=== PATIENT | female | born 1940 | race Caucasian/White ===

== ENCOUNTER 2021-06-26 12:31 | Outpatient (CLI) | payer MEDICARE | END 2021-06-26 12:32 | disposition home or self-care (01) | LOC: CSHMRI 12:31 | PROVIDERS: ATTEND Specialist | DX: M54.12 Radiculopathy, cervical region (principal); M47.812 Spondylosis without myelopathy or radiculopathy, cervical region | CPT/HCPCS: 72141 ==

== ENCOUNTER 2022-04-16 10:40 | Outpatient (CLI) | payer MEDICARE | END 2022-04-16 10:41 | disposition home or self-care (01) | LOC: CSHMAMMO 10:40 | PROVIDERS: ATTEND Internal Medicine | DX: Z12.31 Encounter for screening mammogram for malignant neoplasm of breast (principal); Z80.3 Family history of malignant neoplasm of breast; Z91.89 Other specified personal risk factors, not elsewhere classified | CPT/HCPCS: 77063; 77067 ==

== ENCOUNTER 2024-12-28 10:11 | Outpatient (CLI) | payer MEDICARE | END 2024-12-28 10:12 | disposition home or self-care (01) | LOC: CSHRAD 10:11 | PROVIDERS: ATTEND Surgery | DX: K44.9 Diaphragmatic hernia without obstruction or gangrene (principal); Z98.890 Other specified postprocedural states; K22.2 Esophageal obstruction | CPT/HCPCS: 74220 ==